=== PATIENT | female | born 1930 | race Caucasian/White ===

== ENCOUNTER → 2020-10-03 | Outpatient (CLI) | payer OTHER, BC | LOC: HYPER 14:14 | PROVIDERS: ATTEND Emergency Medicine | DX: L89.313 Pressure ulcer of right buttock, stage 3 (principal); L89.322 Pressure ulcer of left buttock, stage 2; R54 Age-related physical debility; E78.5 Hyperlipidemia, unspecified; I10 Essential (primary) hypertension; Z90.710 Acquired absence of both cervix and uterus ==